=== PATIENT | male | born 1985 | race Caucasian/White ===

== ENCOUNTER 2025-01-31 18:36 | Emergency (ER) | payer OTHER ==
[~2025-01-31] VITALS: Ht 175.3 cm; Wt 80.7 kg
[2025-01-31 20:10] VITALS: BP 131/77; TEMP 98; O2SAT 97
== END 2025-01-31 20:10 | disposition home or self-care (01) ==
LOC: ER 18:40
DX: F15.10 Other stimulant abuse, uncomplicated (principal)

== ENCOUNTER 2025-02-03 22:16 | Emergency (ER) | payer OTHER ==
[~2025-02-03] VITALS: Ht 177.8 cm; Wt 81.6 kg
[2025-02-03 23:16] LABS: PLATELET COUNT (AUTO) 195 K/uL (150-450); RED BLOOD CELL COUNT(AUTO) 4.49 MIL/uL (4.5-6.0); RED CELL DISTRIBUTION WIDTH 12.6 % (11.5-15.0); WHITE BLOOD COUNT (AUTO) 6.3 K/uL (4.3-11.0)
[2025-02-03 23:24] LABS: CALCIUM, SERUM 9.0 mg/dL (8.5-10.1); CREATININE 1.3 mg/dL (0.6-1.3); SODIUM SERUM 142 mmol/L (136-145); UREA NITROGEN, BLOOD 18 mg/dL (7-18)
[2025-02-03 23:28] LABS: ASPARTATE AMINOTRANSFERASE 74 U/L (15-37); TOTAL PROTEIN, SERUM 7.4 g/dL (6.4-8.2)
[2025-02-04 00:32] LABS: APPEARANCE,URINE CLEAR (CLEAR); BLOOD, URINE 1+ Ery/uL (NEGATIVE); LEUKOCYTE ESTERASE ,URINE NEGATIVE (NEGATIVE); NITRITE, URINE NEGATIVE (NEGATIVE); UGLUCOSE NEGATIVE (NEGATIVE)
[2025-02-04 00:44] LABS: BARBITURATE, URINE NEGATIVE (NEGATIVE); BENZODIAZEPINE, URINE NEGATIVE (NEGATIVE); CANNABINOID, URINE NEGATIVE (NEGATIVE); COCCAINE, URINE NEGATIVE (NEGATIVE); OPIATE, URINE NEGATIVE (NEGATIVE)
[2025-02-04 00:46] LABS: AMPHETAMINE, URINE POSITIVE (NEGATIVE)
[2025-02-04 01:00] LABS: ADD URINE CULTURE NO; SQUAMOUS EPITHELIAL CELL,UR 0-2 /HPF (None Seen)
[2025-02-04] MEDS ORDERED: OLANZAPINE 10 MG VIAL IM ONE (03:17)
[2025-02-04] MEDS: OLANZAPINE 10 MG VIAL IM ONE (03:19)
[2025-02-04 16:55] VITALS: BP 136/79; TEMP 98; O2SAT 98
== END 2025-02-04 17:39 ==
LOC: ER 22:19
DX: R46.2 Strange and inexplicable behavior (principal); Z02.89 Encounter for other administrative examinations; Z20.822 Contact with and (suspected) exposure to COVID-19; Z79.899 Other long term (current) drug therapy
CPT/HCPCS: 99285; 85025; 80048; 80076; 36415; 80143; 80307; 87426; 96372; 81001; J3490